=== PATIENT | female | born 1990 | race Caucasian/White ===

== ENCOUNTER 2018-01-05 08:10 | Day surgery (SDC) | END 2018-01-05 11:55 | disposition home or self-care (01) ==

== ENCOUNTER 2018-04-13 06:19 | Day surgery (SDC) | END 2018-04-13 10:40 | disposition home or self-care (01) ==

== ENCOUNTER 2018-04-21 11:33 | Emergency (ER) | END 2018-04-21 11:59 | disposition home or self-care (01) ==

== ENCOUNTER 2019-03-18 19:31 | Emergency (ER) | payer OTHER ==
[~2019-03-18] VITALS: Ht 157.5 cm; Wt 127.3 kg
[~2019-03-18 19:31] MED LIST: CEPH-443 PO; LORA10CA PO; NORTREL PO; SULF1TAB31 PO
[2019-03-18 19:34] VITALS: BP 154/93; PULSE 117; RESP 18; Ht 157.5 cm; Wt 127.3 kg
[2019-03-18] MEDS ORDERED: HYDR28.334 TP (20:39)
[2019-03-18] MEDS ORDERED: SULF1TAB31 PO (20:39)
[2019-03-18] MEDS ORDERED: CEPH-443 PO (20:39)
--- NOTE | 2019-03-18 20:46 | ERD ---
ER Documentation Chief Complaint Chief Complaint RASH ON RUE X2DAYS; POSS BUG BITE HPI 28-year-old female past medical history of PCOS presents for rash in the right wrist area x2 days. She states that she may have been bit by a bug. States that there is getting a little bit red and also itchy. She denies fevers or chills. No treatments tried at home. No modifying factors noted. ROS All systems reviewed and are negative except as per history of present illness. Medications Home Meds Active Scripts Hydrocortisone (Hydrocortisone Cr) 28.35 Gm Cr, 28.35 GM TP BID PRN for itch for 7 Days, #1 TUBE Prov:VILLALOBOSPEE 03/18/19 Sulfamethoxazole/Trimethoprim* (Bactrim Ds* Tablet) 1 Each Tablet, 1 TAB PO BID for skin infection for 7 Days, #14 TAB Prov:PEE VILLALOBOS DO 03/18/19 Cephalexin* (Keflex*) 500 Mg Capsule, 500 MG PO TID for skin infection for 7 Days, #21 CAP Prov:GRISELDAPEE 03/18/19 Cephalexin* (Keflex*) 500 Mg Capsule, 500 MG PO QID for 5 Days, CAP Prov:SHYANN ESTRADA PA-C 04/21/18 Sulfamethoxazole/Trimethoprim* (Bactrim Ds* Tablet) 1 Each Tablet, 1 TAB PO BID, #14 TAB Prov:SHYANN ESTRADA PA-C 04/21/18 Reported Medications Estradiol-Norethindrone Acetate (Nortrel) 0.035-1 Mg Tablet, 1 TAB PO DAILY, TAB 01/05/18 Loratadine* (Claritin*) 10 Mg Capsule, 10 MG PO DAILY, CAP 01/05/18 Allergies Allergies: Coded Allergies: shrimp (Verified Allergy, Mild, 04/13/18) the pt found out allergy to shrimp through the allergy blood tests. No Known Allergies (Verified Allergy, Unknown, 04/13/18) PMhx/Soc Tachycardia, history of PCOS, History of Surgery: Yes (BIG TOE SURGERY) Anesthesia Reaction: No Hx Neurological Disorder: No Hx Respiratory Disorders: No Hx Cardiac Disorders: No Hx Psychiatric Problems: No Hx Miscellaneous Medical Probl: No Hx Alcohol Use: No Hx Substance Use: No Hx Tobacco Use: No FmHx Family History: No coronary disease Physical Exam Vitals Vital Signs Date Temp Pulse Resp B/P (MAP) Pulse Ox O2 O2 Flow FiO2 Time Delivery Rate 03/18/19 98.6 117 18 154/93 98 19:34 (113) Physical Exam Const: No acute distress Resp: Clear to auscultation bilaterally, peripheral pulses intact Cardio: Regular rhythm, tachycardia noted, no murmurs Abd: Soft, non tender, non distended. Normal bowel sounds Skin: Erythematous area over the right wrist area about 5 cm with increased warmth, no underlying fluctuance Ext: No cyanosis, or edema Neur: Awake and alert, bilateral upper extremity sensation intact Psych: Normal Mood and Affect Procedures/MDM Medical Decision Making: Differential diagnosis includes but not limited to cellulitis, dermatitis, allergic reaction Patient appeared well on physical exam. Examination of the right wrist skin area consistent with a cellulitis Patient did have tachycardia on physical examination which she states has been worked up by her automation mechanic and she states that it is a normal variant. Prescription(s): Patient given prescription for supportive medication(s) as well as antibiotics Keflex and Bactrim. Patient advised to follow up with PCP in 1-2 days. Patient advised to return to ED for new or worsening symptoms. Patient stable on discharge from the ED. Disclaimer: Inadvertent spelling and grammatical errors are likely due to EHR/dictation software use and do not reflect on the overall quality of patient care. Also, please note that the electronic time recorded on this note does not necessarily reflect the actual time of the patient encounter. Departure Diagnosis: Primary Impression: Cellulitis Site of cellulitis: extremity Site of cellulitis of extremity: upper extremity Laterality: right Qualified Codes: L03.113 - Cellulitis of right upper limb Condition: Fair Patient Instructions: Cellulitis Referrals: [facility] YOU HAVE RECEIVED A MEDICAL SCREENING EXAM AND THE RESULTS INDICATE THAT YOU DO NOT HAVE A CONDITION THAT REQUIRES URGENT TREATMENT IN THE EMERGENCY DEPARTMENT. FURTHER EVALUATION AND TREATMENT OF YOUR CONDITION CAN WAIT UNTIL YOU ARE SEEN IN YOUR DOCTORS OFFICE WITHIN THE NEXT 1-2 DAYS. IT IS YOUR RESPONSIBILITY TO MAKE AN APPOINTMENT FOR FOLOW-UP CARE. IF YOU HAVE A PRIMARY DOCTOR --you should call your primary doctor and schedule an appointment IF YOU DO NOT HAVE A PRIMARY DOCTOR YOU CAN CALL OUR PHYSICIAN REFERRAL HOTLINE AT IF YOU CAN NOT AFFORD TO SEE A PHYSICIAN YOU CAN CHOSE FROM THE FOLLOW[facility] [address] [facility] [address] [facility] [address] [facility] [address] [facility] [address] [facility]. [facility] [address] Additional Instructions: Call your primary care doctor TOMORROW for an appointment during the next 1-2 days.See the doctor sooner or return here if your condition worsens before your appointment time. PEE VILLALOBOS DO Mar 18, 2019 20:46
== END 2019-03-18 20:47 | disposition home or self-care (01) ==
LOC: E/R 19:31
DX: L03.113 Cellulitis of right upper limb (principal)
CPT/HCPCS: 99283